=== PATIENT | female | born 1985 | race Two or more races ===

== ENCOUNTER → 2018-07-08 | Outpatient (CLI) | payer SELFPAY ==
--- NOTE | 2018-07-08 14:57 | RADIOLOGY REPORT (SQ) ---
EXAM DESCRIPTION: U/S [id number] TRNABD 1GES W/ODOP COMPLETED DATE/TIME: 07/08/2018 2:04 pm REASON FOR STUDY: Z34.81 ENCOUNTER FOR SUPRVSN OF NORMAL , FIRST TRIMESTER Z34.81 ENCOUNTE R FOR SUPRVSN OF NORMAL , FIRST TRIM COMPARISON: None. TECHNIQUE: Transabdominal static and realtime grayscale images acquired of the pelvis. Additional se lected spectral and color Doppler images recorded. All images stored on PACs. bHCG: Not applicable CLINICAL DATES: Not Available. LIMITATIONS: None. FINDINGS: FETUS: Single Living intrauterine . ULTRASOUND EGA: 11 weeks 5 days ULTRASOUND CHARLI: 01/22/2019 EFW: Not applicable less than 20 weeks. CRL: 4.9 cm. FHR: 168 beats per minute. SURVEY: Too early to assess. AMNIOTIC FLUID: Adequate amount. PLACENTA: Not yet developed due to early gestation. SUBCHORIONIC BLEED: No SIZE OF BLEED: Not applicable. UTERUS: No masses or anomalies. 15.8 x 9 x 7.3 cm. CERVICAL LENGTH: 5.3 cm. Closed. RIGHT ADNEXA: Ovary not seen. No adnexal free fluid. No adnexal masses. LEFT ADNEXA: Ovary not seen. No adnexal free fluid. No adnexal masses. FREE FLUID: None. OTHER: No other significant finding. IMPRESSION: LIVING INTRAUTERINE . EGA 11 weeks 5 days Trimester of : First - 0 to 13 weeks. TECHNICAL DOCUMENTATION: JOB ID: [id number] [employer]- All Rights Reserved rev-07/10 Reading location - IP/workstation name: [email or web address]
== END ==
LOC: RAD 13:00
PROVIDERS: ATTEND Midwife
DX: Z34.81 Encounter for supervision of other normal pregnancy, first trimester (principal)
CPT/HCPCS: 76801

== ENCOUNTER → 2018-10-13 | Outpatient (CLI) | payer SELFPAY ==
--- NOTE | 2018-10-13 15:08 | RADIOLOGY REPORT (SQ) ---
EXAM DESCRIPTION: U/S OB 14+ TRNABD 1GES W/O DOP COMPLETED DATE/TIME: 10/13/2018 2:07 pm REASON FOR STUDY: Z34.82 ENCOUNTER FOR SUPRVSN OF NORMAL , SECOND TRIMESTER Z34.82 ENCOUNT ER FOR SUPRVSN OF NORMAL , SECOND TRI COMPARISON: 07/08/2018 TECHNIQUE: Static and Dynamic grayscale imaging performed of gravid uterus using transabdominal appr oach. Additional selected color Doppler and spectral images recorded. All stored on PACS. LIMITATIONS: None. FINDINGS: FETUSES SEEN:1 EGA: 24 weeks 4 days Calculated using BPD,FL,HC,AC documented on images. CHARLI: 01/29/2019 EFW: 779 grams PERCENTILE: 40 LVP: 7.5 PLACENTA: Posterior. The placenta lies approximately 1.1 cm from the cervical os. PRESENTATION: Variable ANATOMY: HEART RATE: 144 beats per minute. FOUR CHAMBER HEART: Visualized. THREE VESSEL CORD: Yes. CORD INSERTION: Visualized. KIDNEYS AND BLADDER: Visualized. Appear normal. STOMACH: Visualized. Appears normal. SPINE: Normal as visualized. BRAIN AND LATERAL VENTRICLES: Visualized. Appear normal. OTHER: No other significant finding. MATERNAL ADNEXA: Nonvisualized. CERVICAL LENGTH: 3.6 cm Closed. OTHER: No other significant finding. IMPRESSION: Living intrauterine with ultrasound estimated gestational age of 24 weeks 4 da ys. The placenta lies approximately 1.1 cm from the cervical os. No visualized anomalies. TECHNICAL DOCUMENTATION: JOB ID: [id number] [employer]- All Rights Reserved Reading location - IP/workstation name: [email or web address]
== END ==
LOC: RAD 13:01
PROVIDERS: ATTEND Midwife
DX: Z34.82 Encounter for supervision of other normal pregnancy, second trimester (principal)
CPT/HCPCS: 76805

== ENCOUNTER → 2018-11-29 | Outpatient (CLI) | payer SELFPAY ==
--- NOTE | 2018-11-29 15:58 | RADIOLOGY REPORT (SQ) ---
EXAM DESCRIPTION: U/S OB 14+ TRNABD 1GES W/O DOP COMPLETED DATE/TIME: 11/29/2018 2:37 pm REASON FOR STUDY: Z34.83 ENCOUNTER FOR SUPRVSN OF NORMAL , THIRD TRIMESTER Z34.83 ENCOUNTE R FOR SUPRVSN OF NORMAL , THIRD TRIM COMPARISON: 10/13/2018 TECHNIQUE: Static and Dynamic grayscale imaging performed of gravid uterus using transabdominal appr oach. Additional selected color Doppler and spectral images recorded. All stored on PACS. LIMITATIONS: None. FINDINGS: FETUSES SEEN:1 EGA: 30 weeks 3 days Calculated using BPD,FL,HC,AC documented on images. No discrepancy with clinica l dates. CHARLI: 02/04/2019 EFW: 1636+/- 242 grams PERCENTILE: 60th ALBERT: 14.4 cm PLACENTA: Posterior and low lying but no previa. Grade 1. PRESENTATION: Cephalic. ANATOMY: HEART RATE: 140 beats per minute. anatomy is not assessed. MATERNAL ADNEXA: Maternal ovaries not visualized. CERVICAL LENGTH: 4.5 cm. Closed. OTHER: No other significant finding. IMPRESSION: LIVING INTRAUTERINE . ESTIMATED GESTATIONAL AGE 30 weeks 3 days NO VISUALIZED ANOMALIES. Trimester of : Third trimester - 28 weeks to delivery. TECHNICAL DOCUMENTATION: JOB ID: [id number] [employer]- All Rights Reserved Reading location - IP/workstation name: [email or web address]
== END ==
LOC: RAD 13:00
PROVIDERS: ATTEND Midwife
DX: Z34.83 Encounter for supervision of other normal pregnancy, third trimester (principal)
CPT/HCPCS: 76805

== ENCOUNTER 2019-01-05 18:15 | Outpatient (CLI) | payer SELFPAY ==
[2019-01-05 18:53] LABS: APPEARANCE,URINE SLIGHTLY-CLOUDY; BILIRUBIN,URINE NEGATIVE (NEGATIVE); GLUCOSE, URINE NEGATIVE (NEGATIVE); KETONES,URINE 20 mg/dL (NEGATIVE); LEUKOCYTE ESTERASE,URINE TRACE (NEGATIVE); NITRITE,URINE NEGATIVE (NEGATIVE); PROTEIN,URINE 30 mg/dL (NEGATIVE); URINE SPECIFIC GRAVITY 1.023; UROBILINOGEN,URINE NEGATIVE mg/dL (<2.0)
[2019-01-05 18:55] LABS: COLOR,URINE DARK YELLOW
[2019-01-05 19:04] LABS: URINE AMPHETAMINES SCREEN NEGATIVE; URINE BARBITURATES SCREEN NEGATIVE; URINE BENZODIAZEPINES SCREEN NEGATIVE; URINE COCAINE SCREEN NEGATIVE; URINE MARIJUANA (THC) SCREEN NEGATIVE; URINE METHADONE SCREEN NEGATIVE; URINE PHENCYCLIDINE SCREEN NEGATIVE
[2019-01-05] MEDS ORDERED: RINGERS SOLUTION,LACTATED 1,000 ML IV PRN (19:08)
[2019-01-05] MEDS ORDERED: RINGERS SOLUTION,LACTATED 1,000 ML IV ONE (19:08)
--- NOTE | 2019-01-05 21:03 | Non Stress Test Report ---
Non Stress Test Datetime Report Generated by CPN: 01/05/2019 21:03 DEMOGRAPHIC EGA NST: 35.3 EGA NST: 35.3 INDICATION Indication for Study (NST) Other: labor check, contractions MONITORING Monitor Explained: Monitor Explained; Test Explained; Patient Verbalized Understanding Monitor Explained: Monitor Explained; Test Explained; Patient Verbalized Understanding Time on Monitor: 01/05/2019 18:45 Time on Monitor: 01/05/2019 18:42 Time off Monitor: 01/05/2019 20:28 NST Duration: 103 NST INTERVENTIONS NST Interventions: PO Hydration; IV Fluids NST Interventions: PO Hydration; IV Fluids Physician Notified NST: Dr. Younger Physician Notified NST: Dr Younger BABY A: [id number] BABY A Movement : Present Contraction Frequency : occasional Contraction Frequency : 1.5-4 FHR Baseline : 135 Accelerations : 15X15 Decelerations : None Variability : Moderate 6-25bpm NST Review: Meets Criteria for Reactive NST NST Review and Verified By : WES Murray NST Results: Reactive NST REPORT Report Trigger: Send Report
== END 2019-01-05 20:58 | disposition home or self-care (01) ==
LOC: LC 18:15
PROVIDERS: ATTEND Obstetrics & Gynecology
PROC: 4A1HXCZ Monitoring of Products of Conception, Cardiac Rate, External Approach (ICD-10-PCS; principal; 2019-01-05)
DX: O47.03 False labor before 37 completed weeks of gestation, third trimester (principal); Z3A.35 35 weeks gestation of pregnancy
CPT/HCPCS: 59025; 80307; 81001

== ENCOUNTER 2019-01-14 23:44 | Inpatient (IN) | payer SELFPAY ==
[2019-01-15] MEDS ORDERED: PENICILLIN G POTASSIUM 5,000,000 UNIT in DEXTROSE 5%-WATER 100 ML IV ONE (00:27)
[2019-01-15] MEDS ORDERED: RINGERS SOLUTION,LACTATED 1,000 ML IV PRN (00:27)
[2019-01-15] MEDS ORDERED: MISOPROSTOL 0.2 MG TABLET ONE (00:30)
[2019-01-15] MEDS ORDERED: OXYTOCIN 10 UNIT/ML VIAL ONE (00:30)
[2019-01-15] MEDS ORDERED: OXYTOCIN/NORMAL SALINE 20 UNIT/1,000 ML RTUINJ ONE (00:30)
[2019-01-15] MEDS ORDERED: LIDOCAINE 1% INJ-PF (10 MG/ML) 30 ML SDV ONE (00:30)
[2019-01-15] MEDS ORDERED: PENICILLIN G-K 5 MILLION UNIT VIAL ONE (00:31)
[2019-01-15 00:34] LABS: APPEARANCE,URINE CLEAR; BILIRUBIN,URINE NEGATIVE (NEGATIVE); COLOR,URINE COLORLESS; GLUCOSE, URINE NEGATIVE (NEGATIVE); KETONES,URINE NEGATIVE (NEGATIVE); LEUKOCYTE ESTERASE,URINE NEGATIVE (NEGATIVE); NITRITE,URINE NEGATIVE (NEGATIVE); PROTEIN,URINE NEGATIVE (NEGATIVE); URINE SPECIFIC GRAVITY 1.002; UROBILINOGEN,URINE NEGATIVE mg/dL (<2.0)
[2019-01-15] MEDS ORDERED: BETAMET ACET/BETAMET NA INJ 6 MG/1 ML ONE (00:40)
[2019-01-15 00:46] LABS: ABSOLUTE EOSINOPHILS # (AUTO) 0.1 10^3/uL (0.0-0.6); ABSOLUTE LYMPHOCYTES (AUTO) 2.6 10^3/uL (0.5-4.7); ABSOLUTE MONOCYTES (AUTO) 0.7 10^3/uL (0.1-1.4); ABSOLUTE NEUT (AUTO) 5.2 10^3/uL (1.7-8.2); BASOPHILS % (AUTO) 0.4 % (0-2); EOSINOPHILS % (AUTO) 1.6 % (0-6); HEMATOCRIT 38.8 % (36.0-47.0); HEMOGLOBIN 13.2 g/dL (12.0-15.5); LYMPHOCYTES % (AUTO) 29.8 % (13-45); MEAN CORPUSCULAR HEMOGLOBIN 28.9 pg (27.0-33.4); MEAN CORPUSCULAR VOLUME 85 fl (80-97); MONOCYTES % (AUTO) 8.4 % (3-13); PLATELET COUNT 197 10^3/uL (150-450); RED BLOOD COUNT 4.55 10^6/uL (3.72-5.28); RED CELL DISTRIBUTION WIDTH 15.3 % (11.5-14.0); SEGMENTED NEUTROPHILS % (AUTO) 59.8 % (42-78); TOTAL CELLS COUNTED % (AUTO) 100 %; WHITE BLOOD COUNT 8.8 10^3/uL (4.0-10.5)
[2019-01-15] MEDS ORDERED: BETAMET ACET/BETAMET NA INJ 6 MG/1 ML IM ONE (01:00)
[2019-01-15 01:24] LABS: URINE AMPHETAMINES SCREEN NEGATIVE; URINE BARBITURATES SCREEN NEGATIVE; URINE BENZODIAZEPINES SCREEN NEGATIVE; URINE COCAINE SCREEN NEGATIVE; URINE MARIJUANA (THC) SCREEN NEGATIVE; URINE METHADONE SCREEN NEGATIVE; URINE PHENCYCLIDINE SCREEN NEGATIVE
[2019-01-15] MEDS ORDERED: OXYTOCIN/NORMAL SALINE 20 UNIT/1,000 ML RTUINJ IV PRN (01:34)
--- NOTE | 2019-01-15 03:18 | Admission Physical ---
Datetime Report Generated by CPN: 01/15/2019 03:18 CURRENT ADMISSION Chief Complaint: Uterine Contractions; Suspected Ruptured Membranes Indication for Induction: Not Applicable Admit Impression : , Intrauterine Admit Plan: Admit to Unit; Initiate Labor Protocol ALLERGIES Medication Allergies: No Medication Allergies: No Known Allergies (01/15/2019) Latex: No Latex Allergies OBSTETRICAL HISTORY EDC: 02/06/2019 00:00 : 5 Para: 4 Livin Gestational Diabetes: No Rh Sensitization: No Incompetent Cervix: No SANDRA: No Infertility: No ART Treatment: No Uterine Anomaly: No IUGR: No Hx Previous C/S: No Macrosomia: No Hx Loss/Stillborn: No PIH: No Hx : No Placenta Previa/Abruption: No Depression/PP Depression: No PTL/PROM: No Post Hemorrhage: No Current Procedures: NST Obstetrical History Comments: G1: 2004 G2: 2008 G3: 2012 G4: 2015 G5: current no complications SEE RECORDS Alcohol: No Marijuana : No Cocaine: No Other Illicit Drugs: No Cigarettes: Never Smoker. 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: No Heart Disease: No Hosp/Surgery: No Autoimmune Disorder: No Anesthetic Complications: No Kidney Disease: No Abnormal Pap Smear: No Neuro/Epilepsy: No Psychiatric Disorders: No Other Medical Diseases: No Hepatitis/Liver Disease: No Significant Family History: No Varicosities/Phlebitis: No Trauma/Violence : No Thyroid Dysfunction: No INFECTIOUS HISTORY Gonorrhea: No Genital Herpes: No Chlamydia: No Tuberculosis: No Syphilis: No Hepatitis: No HIV/AIDS Exposure: No Rash or Viral Illness: No HPV: No PHYSICAL EXAM General: Normal HEENT: Normal Neurologic: Normal Thyroid: Normal Heart: Normal Lungs: Normal Breast: Normal Back: Normal Abdomen: Normal Genitourinary Exam: Normal Extremities: Normal DTRs: Normal Pelvic Type: Adequate Vital Signs: Reviewed; Within Normal Limits VAGINAL EXAM Dilatation: 3 Effacement: 100 Station: -2 MEMBRANES Pooling: Positive Membranes: Ruptured FETUS A EGA: 36.6 Monitoring: External US FHR- Baseline: 40 Variability: Moderate 6-25bpm Accelerations: 15X15 Decelerations: None FHR Category: Category I Estimated Weight (gm): 2900 Presentation: Vertex PLANS FOR LABOR AND DELIVERY Labor and Delivery: None Pain Management: Natural Feeding Preference: Formula Benefit of Breast Feed Discussed: Yes INFORMED CONSENT Signature: with User ID: [email or web address]
[2019-01-15] MEDS ORDERED: PROMETHAZINE HCL 25 MG TABLET PO PRN (03:21)
[2019-01-15] MEDS ORDERED: GLYCERIN/WITCH HAZEL LEAF 1 EACH MED..WIPE TP PRN (03:21)
[2019-01-15] MEDS ORDERED: DIPHENHYDRAMINE HCL 25 MG CAPSULE PO PRN (03:21)
[2019-01-15] MEDS ORDERED: OXYTOCIN/NORMAL SALINE 1,000 ML IV PRN (03:21)
[2019-01-15] MEDS ORDERED: NA PHOS,M-B/NA PHOS,DI-BA (ADULT) 133 ML ENEMA PR PRN (03:21)
[2019-01-15] MEDS ORDERED: DIBUCAINE 1% OINTMENT 56 GM TP PRN (03:21)
[2019-01-15] MEDS ORDERED: MAGNESIUM HYDROXIDE SUSP 30 ML UDCUP PO PRN (03:21)
[2019-01-15] MEDS ORDERED: MEASLES,MUMPS&RUBELLA VACC/PF 0.5 ML VIAL SUBCUT PRN (03:21)
[2019-01-15] MEDS ORDERED: BENZOCAINE/MENTHOL AEROSOL SPRAY 56 ML TOP PRN (03:21)
[2019-01-15] MEDS ORDERED: PSEUDOEPHEDRINE HCL 30 MG TABLET PO PRN (03:21)
[2019-01-15] MEDS ORDERED: PROMETHAZINE HCL 25 MG SUPP.RECT PR PRN (03:21)
[2019-01-15] MEDS ORDERED: ACETAMINOPHEN WITH CODEINE #3 TABLET PO PRN ×2 (03:21)
[2019-01-15] MEDS ORDERED: ZOLPIDEM TARTRATE 5 MG TABLET PO PRN (03:21)
[2019-01-15] MEDS ORDERED: DIPH/PERTUSS(ACELL)/TETANUS VAC/PF 0.5 ML SYR (>=10YO) IM PRN (03:21)
[2019-01-15] MEDS ORDERED: PROMETHAZINE HCL INJ 25 MG/1 ML VIAL IV PRN (03:21)
[2019-01-15] MEDS ORDERED: ACETAMINOPHEN 650 MG SUPP.RECT PR PRN (03:21)
[2019-01-15] MEDS ORDERED: IBUPROFEN 800 MG TABLET ONE (03:49)
--- NOTE | 2019-01-15 04:08 | Delivery Summary ---
Del Sum A-C Datetime Report Generated by CPN: 01/15/2019 04:07 DELIVERY PERSONNEL DELIVERY PERSONNEL: [id number] Delivery Doctor:: Cheyanne Mccann MD Labor and Delivery Nurse:: Pippa Palmer RNgeophysical computer Nurse:: Roxy Rodriguez RN 3D Modeler/PRODUCTION MACHINIST: Annie Sanya, ST MATERNAL INFORMATION Delivery Anesthesia: None Medications After Delivery: Pitocin Bolus-Please Comment Meds After Delivery Comment: Pitocin bolus 20 units/1000 mL following placenta Estimated Blood Loss (ml): 200 Delivery QBL: 50 Maternal Complications: None LABOR SUMMARY EDC: 02/06/2019 00:00 No. Babies in Womb: 1 Labor Anesthesia: None LABOR INFORMATION Reason for Induction: Not Applicable Onset of Labor: 01/14/2019 01:45 Complete Dilatation: 01/15/2019 03:02 Oxytocin: Augmentation Group B Beta Strep: unknown Antibiotics # of Doses: 1 Antibiotics Time of Last Dose: 0046 Name of Antibiotic Given: PCN Steroids Given: Partial Course; < 24 Hours before Delivery Reason Steroids Not Administered: Not Applicable MEMBRANES Membranes Rupture Method: Spontaneous Rupture of Membranes: 01/14/2019 22:00 Length of Rupture (hr): 5.17 Amniotic Fluid Color: Clear Amniotic Fluid Amount: Moderate Amniotic Fluid Odor: Normal STAGES OF LABOR Stage 1 hr: 25 Stage 1 min: 17 Stage 2 hr: 0 Stage 2 min: 8 Stage 3 hr: 0 Stage 3 min: 2 Total Time in Labor hr: 25 Total Time in Labor min: 27 VAGINAL DELIVERY Episiotomy: None Laceration #1: None Laceration Extension #1: N/A Laceration Repair: Not Applicable Sponge Count Correct: N/A; Vaginal Sweep Performed Sharps Count Correct: N/A CSECTION DELIVERY Primary Indication: N/A Secondary Indication: N/A CSection Incidence: N/A Labor: N/A Elective: N/A BABY A INFORMATION Infant Delivery Date/Time: 01/15/2019 03:10 Method of Delivery: Vaginal Born in Route : No : N/A Forceps: N/A Vacuum Extraction: N/A Shoulder Dystocia : No PRESENTATION/POSITION BABY A Presentation: Cephalic Cephalic Presentation: Vertex Vertex Position: Right Occipital Anterior Breech Presentation: N/A PLACENTA INFORMATION BABY A Placenta Delivery Time : 01/15/2019 03:12 Placenta Method of Delivery: Spontaneous Placenta Status: Delivered SCORES BABY A Heart Rate 1 min: >100 bpm Resp Effort 1 min: Good Cry Reflex Irritability 1 min: Cough or Sneeze or Pulls Away Muscle Tone 1 min: Active Motion Color 1 min: Body [place], Extremities Blue SCORE 1 MIN: 9 Heart Rate 5 min: >100 bpm Resp Effort 5 min: Good Cry Reflex Irritability 5 min: Cough or Sneeze or Pulls Away Muscle Tone 5 min: Active Motion Color 5 min: Body [place], Extremities Blue SCORE 5 MIN: 9 INFANT INFORMATION BABY A Gestational Age at Delivery: 36.6 Gestational Status: Late - 34- 36.6 Weeks Outcome : Liveborn Infant Condition : Stable Sex: Female IDENTIFICATION BABY A Infant Verification Date/Time: 01/15/2019 03:46 ID Band Number: [id number] Mother's Name Verified: Yes Infant RN Verifying : Ling Rodriguez RN Additional Verifying Personnel: SpencerDayan ignacio RN CORD INFORMATION BABY A No. Cord Vessels: 3 Nuchal Cord : N/A Nuchal Cord- Other: L compound hand Cord Blood Taken: Yes-For Eval (Mom's Blood Type - or O+) Infant Suction: None ASSESSMENT BABY A Infant Complications: None Physical Findings at Delivery: Within Normal Limits Physical Findings- Other: see initial nursery assessment Respirations: Appears Normal Skin to Skin: No Cloth Pattern Maker/ALS Called : No Infant Care By: Ling Rodriguez RN Transferred To: Remains with Mother SIGNATURES Signature: with User ID: [email or web address]
[2019-01-15] MEDS ORDERED: PENICILLIN G POTASSIUM 2,500,000 UNIT in DEXTROSE 5%-WATER 50 ML IV SCH (05:00)
[2019-01-15] MEDS: PRENATAL VITAMIN W DHA CAPSULE PO SCH (11:08)
[2019-01-15] MEDS: FERROUS SULFATE 325 MG TABLET PO SCH ×2 (11:08→18:48)
[2019-01-15] MEDS: SENNOSIDES/DOCUSATE 8.6-50 MG 1 EACH TABLET PO SCH (11:08)
[2019-01-15] MEDS: FAMOTIDINE 20 MG TABLET PO SCH ×2 (11:08→21:45)
[2019-01-15] MEDS: DOCUSATE SODIUM 100 MG CAPSULE PO SCH ×2 (11:08→18:48)
[2019-01-15] MEDS: IBUPROFEN 800 MG TABLET PO SCH ×3 (14:27→21:45)
[2019-01-16] MEDS: IBUPROFEN 800 MG TABLET PO SCH ×3 (05:47→22:09)
[2019-01-16 06:22] LABS: HEMATOCRIT 30.2 % (36.0-47.0); MEAN CORPUSCULAR HGB CONC 33.6 g/dL (32.0-36.0); MEAN CORPUSCULAR VOLUME 86 fl (80-97); PLATELET COUNT 175 10^3/uL (150-450); RED CELL DISTRIBUTION WIDTH 15.8 % (11.5-14.0); WHITE BLOOD COUNT 14.5 10^3/uL (4.0-10.5)
[2019-01-16 06:31] LABS: HEMOGLOBIN 10.2 g/dL (12.0-15.5)
--- NOTE | 2019-01-16 08:53 | PDOC PROGRESS REPORT ---
Subjective-OB Progress Note for:: 01/16/19 Subjective: Doing well, no c/o, on telephone, hsb at BS, bottle feeding Physical Exam (OB) Vital Signs: Temp Pulse Resp BP Pulse Ox 98.3 F 56 L 16 92/62 L 99 01/16/19 07:45 01/16/19 07:45 01/16/19 07:45 01/16/19 07:45 01/16/19 07:45 Intake & Output 01/15/19 01/16/19 01/17/19 06:59 06:59 06:59 Intake Total 300 Balance 300 Weight 66.3 kg - PIH/Pre-Eclampsia Clonus: Negative Headache: Absent Epigastric Pain: No Visual Changes: No - Lochia Lochia Amount: Small 10-25 ml Lochia Color: Rubra/Red - Abdomen Description: Tender, Soft, Round Hernia Present: No Fundal Description: Firm, Midline Fundal Height: u/u - u/2 Objective-Diagnostic Laboratory: 01/16/19 05:47 01/16/19 05:47 WBC 14.5 H RBC 3.50 L Hgb 10.2 L D Hct 30.2 L MCV 86 MCH 29.0 MCHC 33.6 RDW 15.8 H Plt Count 175 Assessment and Plan(PN) - Assessment and Plan (1) Anemia Qualifiers: Other causes of anemia: acute posthemorrhagic Is this a current diagnosis for this admission?: Yes (2) Normal vaginal delivery Is this a current diagnosis for this admission?: Yes - Time Spent with Patient Time with patient: Less than 15 minutes Medications reviewed and adjusted accordingly: Yes - Disposition Anticipated Discharge: Home Within: within 24 hours
[2019-01-16] MEDS: DOCUSATE SODIUM 100 MG CAPSULE PO SCH ×2 (09:09→18:30)
[2019-01-16] MEDS: PRENATAL VITAMIN W DHA CAPSULE PO SCH (09:09)
[2019-01-16] MEDS: FAMOTIDINE 20 MG TABLET PO SCH ×2 (09:09→22:09)
[2019-01-16] MEDS: SENNOSIDES/DOCUSATE 8.6-50 MG 1 EACH TABLET PO SCH (09:09)
[2019-01-16] MEDS: FERROUS SULFATE 325 MG TABLET PO SCH ×2 (09:09→18:30)
[2019-01-17] MEDS: IBUPROFEN 800 MG TABLET PO SCH (06:14)
[2019-01-17 09:07] VITALS: BP 99/58
[2019-01-17] MEDS: PRENATAL VITAMIN W DHA CAPSULE PO SCH (09:32)
[2019-01-17] MEDS: DOCUSATE SODIUM 100 MG CAPSULE PO SCH (09:32)
[2019-01-17] MEDS: FERROUS SULFATE 325 MG TABLET PO SCH (09:32)
[2019-01-17] MEDS: FAMOTIDINE 20 MG TABLET PO SCH (09:32)
[2019-01-17] MEDS: SENNOSIDES/DOCUSATE 8.6-50 MG 1 EACH TABLET PO SCH (09:32)
--- NOTE | 2019-01-17 09:43 | PDOC DISCHARGE SUMMARY ---
Impression - Admit/DC Date/PCP Admission Date/Primary Care Provider: 01/15/19 00:30 Discharge Date: 01/17/19 - Discharge Diagnosis (1) Anemia Is this a current diagnosis for this admission?: Yes (2) Normal vaginal delivery Is this a current diagnosis for this admission?: Yes - Additional Information Resuscitation Status: Full Code Discharge Diet: Regular Discharge Activity: Balance Activity w/Rest, Pelvic Rest Prescriptions: Ibuprofen [Motrin 800 mg Tablet] 800 mg PO Q8 #60 tablet Home Medications: No122/Iron/Folic Acid [ Multi Tablet] 1 each PO DAILY 01/05/19 Ibuprofen [Motrin 800 mg Tablet] 800 mg PO Q8 #60 tablet 01/17/19 Results Laboratory Results: WBC 14.5 10^3/uL (4.0-10.5) H 01/16/19 05:47 RBC 3.50 10^6/uL (3.72-5.28) L 01/16/19 05:47 Hgb 10.2 g/dL (12.0-15.5) L D 01/16/19 05:47 Hct 30.2 % (36.0-47.0) L 01/16/19 05:47 MCV 86 fl (80-97) 01/16/19 05:47 MCH 29.0 pg (27.0-33.4) 01/16/19 05:47 MCHC 33.6 g/dL (32.0-36.0) 01/16/19 05:47 RDW 15.8 % (11.5-14.0) H 01/16/19 05:47 Plt Count 175 10^3/uL (150-450) 01/16/19 05:47 Lymph % (Auto) 29.8 % (13-45) 01/15/19 00:36 [place] % (Auto) 8.4 % (3-13) 01/15/19 00:36 Eos % (Auto) 1.6 % (0-6) 01/15/19 00:36 Baso % (Auto) 0.4 % (0-2) 01/15/19 00:36 Absolute Neuts (auto) 5.2 10^3/uL (1.7-8.2) 01/15/19 00:36 Absolute Lymphs (auto) 2.6 10^3/uL (0.5-4.7) 01/15/19 00:36 Absolute Monos (auto) 0.7 10^3/uL (0.1-1.4) 01/15/19 00:36 Absolute Eos (auto) 0.1 10^3/uL (0.0-0.6) 01/15/19 00:36 Absolute Basos (auto) 0.0 10^3/uL (0.0-0.2) 01/15/19 00:36 Seg Neutrophils % 59.8 % (42-78) 01/15/19 00:36 Urine Color COLORLESS 01/15/19 00:00 Urine Appearance CLEAR 01/15/19 00:00 Urine pH 7.0 (5.0-9.0) 01/15/19 00:00 Ur Specific [place] 1.002 01/15/19 00:00 Urine Protein NEGATIVE mg/dL (NEGATIVE) 01/15/19 00:00 Urine Glucose (UA) NEGATIVE mg/dL (NEGATIVE) 01/15/19 00:00 Urine Ketones NEGATIVE mg/dL (NEGATIVE) 01/15/19 00:00 Urine Blood MODERATE (NEGATIVE) H 01/15/19 00:00 Urine Nitrite NEGATIVE (NEGATIVE) 01/15/19 00:00 Urine Bilirubin NEGATIVE (NEGATIVE) 01/15/19 00:00 Urine Urobilinogen NEGATIVE mg/dL (<2.0) 01/15/19 00:00 Ur Leukocyte Esterase NEGATIVE (NEGATIVE) 01/15/19 00:00 Urine WBC (Auto) 0 /HPF 01/15/19 00:00 Urine RBC (Auto) 1 /HPF 01/15/19 00:00 Urine Bacteria (Auto) TRACE /HPF 01/15/19 00:00 Squamous Epi Cells Auto 1 /HPF 01/15/19 00:00 Urine Ascorbic Acid NEGATIVE (NEGATIVE) 01/15/19 00:00 Membranes Rupture POSITIVE (NEGATIVE) H 01/15/19 00:06 Urine Opiates Screen NEGATIVE 01/15/19 00:00 Urine Methadone Screen NEGATIVE 01/15/19 00:00 Ur Barbiturates Screen NEGATIVE 01/15/19 00:00 Ur Phencyclidine Scrn NEGATIVE 01/15/19 00:00 Ur Amphetamines Screen NEGATIVE 01/15/19 00:00 U Benzodiazepines Scrn NEGATIVE 01/15/19 00:00 Urine Cocaine Screen NEGATIVE 01/15/19 00:00 U Marijuana (THC) Screen NEGATIVE 01/15/19 00:00 RPR NONREACTIVE (NONREACTIVE) 01/15/19 00:36 Blood Type O POSITIVE 01/15/19 00:36 Antibody Screen NEGATIVE 01/15/19 00:36
[2019-01-17] MEDS ORDERED: INFLUENZA QUAD (6MOS+) 2019-20 VAC 0.5 ML SYR IM ONE (11:06)
== END 2019-01-17 14:05 | disposition home or self-care (01) | DRG 806 ==
LOC: LC 23:44 → LR 01-15 00:30 → 2S 01-15 07:48
PROVIDERS: ADMIT Obstetrics & Gynecology; ATTEND Obstetrics & Gynecology
PROC: 10E0XZZ Delivery of Products of Conception, External Approach (ICD-10-PCS; principal; 2019-01-15)
PROC: 3E02340 Introduction of Influenza Vaccine into Muscle, Percutaneous Approach (ICD-10-PCS; 2019-01-17)
DX: O60.14X0 Preterm labor third trimester with preterm delivery third trimester, not applicable or unspecified (principal); D62 Acute posthemorrhagic anemia; Z37.0 Single live birth; Z3A.36 36 weeks gestation of pregnancy; O32.6XX0 Maternal care for compound presentation, not applicable or unspecified; O99.02 Anemia complicating childbirth; Z23 Encounter for immunization
CPT/HCPCS: 36415; 80307; 81001; 84112; 85025; 85027; 86592; 86850; 86900; 86901; 90686; J0702; J2540; J2590; J3490; J7060

== ENCOUNTER → 2019-12-20 | Outpatient (CLI) | payer SELFPAY ==
--- NOTE | 2019-12-20 14:39 | RADIOLOGY REPORT (SQ) ---
EXAM DESCRIPTION: U/S OB 14+ TRNABD 1GES W/O DOP IMAGES COMPLETED DATE/TIME: 12/20/2019 2:19 pm REASON FOR STUDY: Z34.82 ENCOUNTER FOR SUPRVSN OF NORMAL , SECOND TRIMESTER Z34.82 ENCOUNT ER FOR SUPRVSN OF NORMAL , SECOND TRI COMPARISON: None. TECHNIQUE: Static and Dynamic grayscale imaging performed of gravid uterus using transabdominal appr oach. Additional selected color Doppler and spectral images recorded. All stored on PACS. LIMITATIONS: None. FINDINGS: FETUSES SEEN:1 EGA: 19 weeks 0 days Calculated using BPD,FL,HC,AC documented on images. No discrepancy with clinica l dates. CHARLI: 05/15/2020 EFW: 266 grams PERCENTILE: Not applicable. Fetus less than or equal to 20 weeks gestation. ALBERT: LVP--- 4.7 cm x 5.6 cm PLACENTA: Anterior. Question of circumvallate placenta. PRESENTATION: Variable. ANATOMY: HEART RATE: 158 beats per minute. FOUR CHAMBER HEART: Visualized. THREE VESSEL CORD: Yes. CORD INSERTION: Visualized. KIDNEYS AND BLADDER: Visualized. Appear normal. STOMACH: Visualized. Appears normal. SPINE: Normal as visualized. BRAIN AND LATERAL VENTRICLES: Visualized. Appear normal. OTHER: No other significant finding. MATERNAL ADNEXA: Maternal right ovary not visualized. The left maternal ovary measures 2.9 x 1.3 x 2 .0 cm, unremarkable in appearance. CERVICAL LENGTH: 4.2 cm Closed. OTHER: No other significant finding. IMPRESSION: LIVING INTRAUTERINE . ESTIMATED GESTATIONAL AGE: 19 weeks 0 days Question of circumvallate placenta NO VISUALIZED ANOMALIES. Trimester of : Second trimester - 13 weeks 1 day to 27 weeks 6 days. TECHNICAL DOCUMENTATION: JOB ID: [id number]- All Rights Reserved Reading location - IP/workstation name: [email or web address]
== END ==
LOC: RAD 13:00
PROVIDERS: ATTEND Midwife
DX: Z34.82 Encounter for supervision of other normal pregnancy, second trimester (principal)
CPT/HCPCS: 76805